=== PATIENT | female | born 1960 | race Caucasian/White ===

== ENCOUNTER 2022-09-07 11:57 | Emergency (ER) | payer SELFPAY ==
[2022-09-07 13:16] LABS: ESTIMATED GFR 65 mL/min (>60)
[2022-09-07] MEDS ORDERED: Acetaminophen/oxyCODONE 325-5 MG Tab PO ONE (15:41)
[2022-09-07] MEDS ORDERED: Ibuprofen 600 MG Tab PO ONE (15:42)
[2022-09-07] MEDS ORDERED: Linezolid 600 MG in Premix Bag 1 BAG IV ONE (16:32)
[2022-09-07 17:38] LABS: CORONAVIRUS COVID-19 NAA NEGATIVE (NEGATIVE)
== END 2022-09-07 19:45 | disposition home or self-care (01) ==
LOC: JD.ED 11:57
DX: L97.521 Non-pressure chronic ulcer of other part of left foot limited to breakdown of skin (principal); I10 Essential (primary) hypertension; Z20.822 Contact with and (suspected) exposure to COVID-19
CPT/HCPCS: 0241U; 36415; 73700; 80053; 83735; 83880; 85025; 85610; 85652; 85730; 86140; 96365; 99284; A9270; J2020